=== PATIENT | female | born 1945 | race Caucasian/White ===

== ENCOUNTER → 2017-09-11 | Outpatient (CLI) | payer MEDICARE ==
[~2017-09-11] MED LIST: ADJUSTABLE COMM1 MIS; ATEN-102 PO; ATOR10TA PO; ATOR10TA15 PO; B12-1CHW CHEW; COBA1000 PO; CYAN100025 SL; D-20TAB3 PO; DAILTAB38 PO; FEXO180T PO; HYDR-3580 PO; LETR2.5T PO; LEVO.1 PO; LOSA100T3 PO; METO50TA PO; MOTR200T PO; VITA-13; WALKER WHEELS/F1 MIS; ZANT150T2 PO; [UNRECOGNIZED DRUG - CODE] PO
[2017-09-11 10:04] LABS: BACTERIA, URINE OCC /hpf; BLOOD, URINE NEG (NEG); COMMENT (UR) CULT NOT INDICATED; CULTURE IF INDICATED CULT NOT INDICATED; GLUCOSE,URINE NEG (NEG); KETONE, URINE NEG (NEG); NITRITE,URINE NEG (NEG); SQUAMOUS EPITHELIAL CELL URINE 1 /hpf (0-5); URINE COLOR LIGHT-YELLOW (YELLW/STRAW)
[2017-09-11 10:09] LABS: AUTOMATED NEUTROPHIL # 3.5 TH/MM3 (1.8-7.7); BASOPHIL # 0.1 TH/MM3 (0-0.2); BASOPHIL % 0.3 % (0.0-2.0); EOSINOPHIL % 0.2 % (0.0-4.0); HEMATOCRIT 38.9 % (35.0-46.0); LYMPH % 86.9 % (9.0-44.0); LYMPHOCYTE # 26.9 TH/MM3 (1.0-4.8); MEAN CELL VOLUME 97.7 FL (80.0-100.0); MEAN CORPUSCULAR HEMOGLOBIN 33.5 PG (27.0-34.0); MEAN CORPUSCULAR HGB CONC 34.3 % (32.0-36.0); MONO % 1.4 % (0.0-8.0); NEUT % 11.2 % (16.0-70.0); PLATELET COUNT 180 TH/MM3 (150-450); RED BLOOD COUNT 3.99 MIL/MM3 (4.00-5.30)
[2017-09-11 10:10] LABS: APTT (PATIENT) 24.7 SEC (24.3-30.1); PROTHROMBIN TIME - PATIENT 10.8 SEC (9.8-11.6)
[2017-09-11 10:21] LABS: HEMO FLAGS AUTO DIFF
[2017-09-11 11:25] LABS: NEUTROPHIL # MANUAL DIFF 4.7 TH/MM3 (1.8-7.7); POLYS (SEG NEUTROPHILS) 15 % (16-70); SMUDGE CELLS PRESENT PRESENT; WBC DIFF SAMPLE 100
[2017-09-11 11:26] LABS: PLATELET ESTIMATE SMEAR NORMAL (NORMAL); PLATELET MORPHOLOGY NORMAL (NORMAL); SCAN/DIFF FINAL DIFF MANUAL
--- NOTE | 2017-09-11 15:15 | EKG ---
Date Performed: 09/11/2017 Time Performed: 09:03:46 PTAGE: 72 years EKG: Sinus rhythm WITH OCCASIONAL VENTRICULAR PREMATURE COMPLEXES WITH OCCASIONAL SUPRAVENTRICULAR PREMATURE COMPLEXES MODERATE INTRAVENTRICULAR CONDUCTION DELAY BORDERLINE ECG NO PREVIOUS TRACING DOCTOR: Matias Chowdhury Interpretating Date/Time 09/11/2017 15:13:56
== END ==
LOC: CPRE 08:29
PROVIDERS: ATTEND Orthopaedic Surgery Orthopaedic Surgery of the Spine
DX: Z01.810 Encounter for preprocedural cardiovascular examination (principal); Z01.812 Encounter for preprocedural laboratory examination; M96.1 Postlaminectomy syndrome, not elsewhere classified; M53.2X6 Spinal instabilities, lumbar region; R94.31 Abnormal electrocardiogram [ECG] [EKG]
CPT/HCPCS: 36415; 81001; 85007; 85027; 85610; 85730; 93005

== ENCOUNTER 2017-09-24 08:41 | Inpatient (IN) | payer MEDICARE ==
[~2017-09-24] VITALS: Ht 165.1 cm; Wt 88.9 kg
[~2017-09-24 08:41] MED LIST changes: -ADJUSTABLE COMM1 MIS; -ATEN-102 PO; -ATOR10TA PO; -B12-1CHW CHEW; -COBA1000 PO; -CYAN100025 SL; -HYDR-3580 PO; -MOTR200T PO; -VITA-13; -WALKER WHEELS/F1 MIS
[2017-09-24] MEDS ORDERED: VANCOMYCIN HCL 1000 MG VIAL ONE (10:34)
[2017-09-24] MEDS ORDERED: SODIUM CHLOR 0.9% 250 ML INJ 250 ML ONE (10:34)
[2017-09-24] MEDS ORDERED: ceFAZolin 2 GM PREMIX 50 ML IV SCH (10:45)
[2017-09-24] MEDS ORDERED: POVIDONE IODINE 7.5% SCRUB 118 ML BOTTLE TOPICAL SCH (10:45)
[2017-09-24] MEDS ORDERED: CHLORHEXIDINE GLUCONATE 2 % 1 PACK (2 CLOTHS) TOPICAL PRN (10:45)
[2017-09-24] MEDS ORDERED: LACTATED RINGER'S 1000 ML IV PRN (10:45)
[2017-09-24] MEDS ORDERED: SODIUM CHLORID 0.9% 500 ML IV PRN (10:45)
[2017-09-24] MEDS ORDERED: INSULIN HUMAN REGULAR 1,000 UNITS/10 ML VIAL SQ PRN (10:45)
[2017-09-24] MEDS ORDERED: POVIDONE IODINE 5% (ANTISEPSIS KIT) 4 APPLICATIONS EACH NARE PRN (10:45)
[2017-09-24] MEDS ORDERED: METOPROLOL TARTRATE 25 MG TAB PO PRN (10:45)
[2017-09-24] MEDS ORDERED: VANCOMYCIN 1000 MG/NS 250 ML (for <70 kg) IV SCH ×2 (10:45)
[2017-09-24] MEDS ORDERED: GLYCOPYRROLATE 1 MG/5 ML SYRINGE IV PUSH ONE (12:00)
[2017-09-24] MEDS ORDERED: NEOSTIGMINE 3 MG/3 ML SYR IV ONE (12:00)
[2017-09-24] MEDS ORDERED: ONDANSETRON HCL 4 MG/2 ML VIAL IV PUSH ONE (12:00)
[2017-09-24] MEDS ORDERED: PROPOFOL 200 MG/20 ML AMP IV ONE (12:00)
[2017-09-24] MEDS ORDERED: DEXAMETHASONE SOD PHOS 4 MG/ML VIAL IV ONE (12:00)
[2017-09-24] MEDS ORDERED: PHENYLEPH/NS 1000 MCG/10 ML SYR IV ONE (12:00)
[2017-09-24] MEDS ORDERED: ePHEDrine/NS 25 MG/5 ML SYR IV ONE (12:00)
[2017-09-24] MEDS ORDERED: ceFAZolin INJ 1,000 MG VIAL IV ONE (12:00)
[2017-09-24] MEDS ORDERED: LIDOCAINE HCL 1% PF 5 ML AMPULE OTHER ONE (12:00)
[2017-09-24] MEDS ORDERED: MIDAZOLAM HCL 2 MG/2 ML VIAL IV ONE (12:00)
[2017-09-24] MEDS ORDERED: ROCURONIUM INJ 50 MG/5 ML SYRINGE IV PUSH ONE (12:00)
[2017-09-24] MEDS ORDERED: FAMOTIDINE 20 MG/2 ML VIAL ONE (13:09)
[2017-09-24] MEDS ORDERED: BETAMETHASONE SOD PHOS/ACETATE SUSP 30 MG/5 ML VIAL ONE (13:27)
[2017-09-24] MEDS ORDERED: GENTAMICIN SULFATE 80 MG/2 ML VIAL ONE (13:27)
[2017-09-24] MEDS ORDERED: GELATIN 12 MM/7 MM FOAM ONE (13:53)
[2017-09-24] MEDS ORDERED: THROMBIN (TOPICAL) 5,000 UNIT VIAL ONE (13:53)
[2017-09-24] MEDS ORDERED: HYDROmorphone HCL PF 2 MG/ML VIAL ONE (15:18)
[2017-09-24] MEDS ORDERED: NON-FORMULARY DRUG (Ranitidine (Zantac) 150 MG) PO PRN (16:45)
[2017-09-24] MEDS ORDERED: SOD PHOSPHATE/SOD BIPHOSPHATE (ADULT) ENEMA 133ML PR PRN (16:45)
[2017-09-24] MEDS ORDERED: BISACODYL 10 MG SUPP RECTAL PRN (16:45)
[2017-09-24] MEDS ORDERED: NALOXONE HCL 0.4 MG/ML AMP IV PUSH PRN (16:45)
[2017-09-24] MEDS ORDERED: SODIUM CHLORIDE 0.9% FLUSH 5 ML FLUSH IVF PRN (16:45)
[2017-09-24] MEDS ORDERED: ALUMINUM/MAGNESIUM/SIMETH 30 ML CUP PO PRN (16:45)
[2017-09-24] MEDS ORDERED: MORPHINE SULFATE 8 MG/ML INJ IV PUSH PRN (16:45)
[2017-09-24] MEDS ORDERED: Post-op Orders (for Pharmacy) MISC XX ONE (16:45)
[2017-09-24] MEDS ORDERED: ACETAMINOPHEN/HYDROcodone 325 MG/7.5 MG TAB PO PRN (16:45)
--- NOTE | 2017-09-24 16:45 | PD.OP ---
cc: Willard Bailey MD Operative Report Date of Surgery: Sep 24, 2017 Preoperative Diagnosis: Lumbar spinal stenosis, L4 5. Left lumbosacral radiculopathy. 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 Posterior spinal fusion, L4 5, lateral transverse process technique. Posterior spinal segmental instrumentation, L4 5. Posterior lateral interbody fusion L4 5 Placement of interbody cage, L4 5 from the left. Major bone grafting of the lumbar spine Anesthesia: Gen. Surgeon: Willard Bailey Pediatric Physiatrist(s): JUWAN Arriola Operation and Findings: EBL: 100 ml NOTE: Aurora Arriola PA-C was present for the entire surgical procedure as my speech pathologist assistant. In my medical opinion her skill and care was necessary for proper management of this patient INDICATIONS: This patient is a 72-year-old female with left-sided foraminal stenosis L4 5 associated with a disc into the foramen significant inflammatory changes at the L4 5 interspace to the left associated with a high-grade foraminal stenosis and evidence of inflammatory changes. She's had extensive conservative care and injections into that region that alleviates her pain for a period of time. She has a significant lateral listhesis at that level contributing to the foraminal stenosis. She now presents for surgical treatment. INSTRUMENTATION: Spine wave Stax cage and screws PROCEDURE: The patient brought to the operating room and anesthetized the supine position. The patient positioned prone on the Byron frame on the Yeyo table. All pressure points are protected. The back was scrubbed with alcohol followed by Hibiclens followed by ChloraPrep and draped sterilely and antibiotics were given within a routine time window. A timeout was done. Lateral radiographic images used to identify the proper level for the procedure. Compared care for the preoperative studies. Skin markings were made anticipating surgical treatment. A left paramedian incision was made. The lamina and facet joint was exposed. We used a dilating retractor which was positioned over this region. The microscope was rolled into the field for visualization. A high-speed bur was used to take the lamina down and doing a subtotal facet resection. The exiting and crossing nerve roots were completely decompressed. A total discectomy was accomplished. The disc space was prepared. All cartilaginous material from the disc space was removed. A combination of demineralized bone matrix and Nucel stem cells were mixed together on the back table.. These were injected into the disc space. The cage was then placed according to health promotion manager's recommendation and deployed. Position was satisfactory. Additional bone graft was placed into the disc space. The outer edge of the facet joint was identified and prepared. Under fluoroscopic images, a bur was used to gain entrance into the pedicle followed by placement of a blunt probe, an awl and placement of proper length screws. Each screw was charged with electric current there are no abnormal potentials registered in either lower extremity. A proper length pascual was fitted and attached and tightened according to health promotion manager's recommendation. The wound was irrigated copiously. Bone grafting was placed along the lateral gutter in the region of the transverse process across this level. This was closed in layers with #1 Vicryl, 2-0 Vicryl and running intradermal 3-0 Vicryl followed by Steri-Strips and benzoin. On the contralateral side a separate exposure was made. The outer edge of the facet joints were identified. A bur was used to gain entrance into the pedicle followed by placement of a probe and proper length screws. Each screw was charged with electric current and no abnormal potentials registered in either lower extremity. The wound was irrigated copiously. Bone graft placed along the transverse process across this level. It was closed in layers using #1 Vicryl, 2-0 Vicryl and running intradermal 3-0 Vicryl followed by Steri-Strips and benzoin. Intraoperative radiographs were obtained. No complication was appreciated. The patient had a sterile dressing applied. The patient was awakened and taken to recovery room in satisfactory condition. FINDINGS: There was evidence of a high-grade left-sided foraminal stenosis affecting the exiting left L4 nerve root. The decompression was felt to be very satisfactory. There was no evidence of residual nerve root compromise. Cage and screw placement appeared be very satisfactory. There was no complication that was appreciated. Willard Bailey MD Sep 24, 2017 16:45
[2017-09-24] MEDS ORDERED: HYDR-3580 PO (16:48)
[2017-09-24] MEDS ORDERED: DO NOT ADM ANY ANTICOAGULANT DRUGS PRN (17:02)
[2017-09-24] MEDS ORDERED: FAMOTIDINE 20 MG TAB PO PRN (17:15)
--- NOTE | 2017-09-24 17:18 | RADRPT ---
EXAM DATE/TIME: 09/24/2017 16:20 [place] COMPARISON: No previous studies available for comparison. INDICATIONS : L4-L5 lumbar fusion. MEDICAL HISTORY : None. SURGICAL HISTORY : None. ENCOUNTER: Initial ACUITY: 1 day PAIN SCORE: 0/10 LOCATION: Bilateral l-spine FINDINGS: AP and lateral spot fluoroscopic images of the lumbar spine demonstrate posterior spinal fixation wit h bilateral pedicular screws and stabilization hardware at L4-L5. CONCLUSION: Images document posterior spinal fusion at L4-L5. Guevara Stinson MD on September 24, 2017 at 17:16 Board Certified Radiologist. This report was verified electronically.
[2017-09-24] MEDS: MORPHINE SULFATE 30 MG/30 ML PCA IV SCH (17:39)
[2017-09-24] MEDS: LACTATED RINGER'S 1000 ML INJ 1,000 ML IV SCH (17:39)
[2017-09-24 20:46] VITALS: O2SAT 95
[2017-09-24 20:50] VITALS: BP 135/68; PULSE 72; RESP 18; TEMP 97; O2SAT 99
[2017-09-24] MEDS ORDERED: WALKER WHEELS/F1 MIS (21:00)
[2017-09-24] MEDS ORDERED: ZOLPIDEM TARTRATE 5 MG TAB PO PRN (21:00)
[2017-09-24] MEDS ORDERED: ADJUSTABLE COMM1 MIS (21:01)
--- NOTE | 2017-09-24 21:01 | HHI.DCPOC ---
Discharge Care Plan Diagnosis: (1) Back pain (2) Lumbar spinal stenosis (3) Lumbar spine instability Your Health Problems Are: Difficulty with ADL Incision/Drains Inflammation Goals to Promote Your Health * To prevent worsening of your condition and complications * To maintain your health at the optimal level Directions to Meet Your Goals Take your medications as prescribed Follow your dietary instruction Follow activity as directed Keep your appointments as scheduled Take your immunizations and boosters as scheduled If your symptoms worsen call your PCP, if no PCP go to Urgent Care Center or Emergency Room Smoking is Dangerous to Your Health. Avoid second hand smoke Call the 24-hour hour crisis hotline for domestic abuse at Dilma Renner Sep 24, 2017 21:01
--- NOTE | 2017-09-24 21:03 | HHI.FF ---
Face to Face Verification Diagnosis: (1) Back pain (2) Lumbar spine instability (3) Lumbar spinal stenosis Physical Therapy Gait training, Safety evaluation, Transfer training, bed to chair S/P Spinal Fusion: Gait training with walker, Weight bearing as tolerated, No twisting of torso, No bending Additional Instructions PT 4 days/wk for 1 week. WBAT bilateral LE. Out of bed with lumbar brace for 10 weeks. Limit lifting, bending or twisting. Nursing RN Days per Week: 4 x Week(s): 1 Nursing: Dressing changes Dressing Changes: Daily dressing change, 4x4s, Coverderm/Primapore Additional Instructions Vitals assessment. Dressing assessment - dry dressing changes daily w etoh. I have seen patient Philomena Corona on 09/24/17. My clinical findings support the need for the requested home health care services because: Limited ability to care for self High risk of falls I certify that my clinical findings support that this patient is homebound because: Post-op weakness Unsteady gait/balance Dilma Renner Sep 24, 2017 21:03
--- NOTE | 2017-09-24 21:11 | HHI.DS ---
Discharge Summary Admission Date Sep 24, 2017 at 09:40 Discharge Date: Sep 26, 2017 Admitting Diagnosis see below Diagnosis: (1) Back pain Diagnosis: Principal ICD Codes: M54.9 - Back pain Status: Acute (2) Lumbar spinal stenosis Diagnosis: Principal ICD Codes: M48.061 - Spinal stenosis, lumbar region without neurogenic claudication (3) Lumbar spine instability Diagnosis: Principal ICD Codes: M53.2X6 - Spinal instabilities, lumbar region Procedures Left laminectomy L45, subtotal facet resection, posterior lumbar fusion, posterior spinal segmental instrumentation with interbody cage L45, bone graft. Brief History This is a 72 year old female patient back and left leg pain for 3-4 years. She had previous imaging in 2013 that lead to treatment with ESIs. She was able to get some relief but her pain continued. She sought out treatment with Dr. Navin Fair April of 2017. Physical therapy was ordered in addition to an updated MRI. This showed substantial foraminal stenosis L45 to the left. Therapy was discontinued and she was referred to pain management for a left L4 nerve root injection at L45. This was repeated 2 times. She was able to improve pain by 80-90 percent but only temporarily. After her pain returned and function declined she was referred to Dr. Willard Fair for surgical treatment. After review of studies it was recommended she undergo Left laminectomy L45 with subtotal facet resection to be able to decompress the L4 nerve root followed by posterior lumbar fusion with segmental instrumentation and interbody cage L45. The patient agreed and now presents for the above. Hospital Course Surgical treatment was performed on the day of admission without complication. She recovered well in PACU and was transferred to the orthopaedic floor. Pain was controlled with IV and oral medications. She was compliant with physical therapy and all restrictions including use of her lumbar brace and lumbar fusion protocols. After 2 days she was found to be stable and discharged home with home health care. 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 She was given a prescription of [place] for pain. Pt Condition on Discharge: Stable Discharge Disposition: Disch w/ Home Health Serv Discharge Instructions Diet Instructions: As Tolerated, No Restrictions, High Fiber Diet Activities You Can Perform: Weight Bearing as Radha, See Additionl Instruction Activities to Avoid: Lifting/Bending, Strenuous Activity Additional Activity Instruc.: Out of bed with lumbar brace for 10-12 weeks. New Medications: Adjustable Commode 3-in-1 (Adjustable Commode 3-in-1) 1 Mis Mis EA .ROUTE DIRECTED, #1 Walker with Front Wheels (Walker with Front Wheels) 1 Mis Mis EA .ROUTE DIRECTED, #1 0 Refills Hydrocodone/Acetaminophen (Hydrocodone-Acetamin 7.5-325) 7.5 Mg-325 Mg Tablet 1 TAB PO Q4H PRN for Pain, #50 TAB Continued Medications: Atorvastatin (Atorvastatin) 10 Mg Tab 10 MG PO HS for Cholesterol Management, #30 TAB 0 Refills Cholecalciferol (D-2000 Maximum Strength) 2,000 Unit Tab 4000 UNITS PO DAILY for Nutritional Supplement, #30 TAB 0 Refills Cyanocobalamin (Vitamin B-12) (B-12) 1,000 Mcg Tablet 2 TAB PO DAILY Fexofenadine (Fexofenadine) 180 Mg Tab 180 MG PO DAILY for Allergy Management, #30 TAB 0 Refills Letrozole (Letrozole) 2.5 Mg Tab 2.5 TAB PO DAILY Levothyroxine (Synthroid) 100 Mcg Tab 100 MCG PO DAILY for Thyroid, #30 TAB 0 Refills Losartan-Hydrochlorothiazide (Losartan-Hydrochlorothiazide) 100-12.5 Mg Tab 1 TAB PO DAILY for Blood Pressure Management, #30 TAB 0 Refills Metoprolol Tartrate (Metoprolol Tartrate) 50 Mg Tab 50 MG PO DAILY, #30 TAB 0 Refills Multiple Vitamin (Daily Multiple Vitamin) 1 Tab Tab TAB PO DAILY Ranitidine (Zantac) 150 Mg Tab 150 MG PO DAILY PRN for HEARTBURN, #30 TAB 0 Refills Dilma Renner Sep 24, 2017 21:11
[2017-09-24] MEDS: ATORVASTATIN 10 MG TAB PO SCH (21:25)
[2017-09-24] MEDS: SODIUM CHLORIDE 0.9% FLUSH 5 ML FLUSH IVF SCH (21:25)
[2017-09-24] MEDS: ONDANSETRON HCL 4 MG/2 ML VIAL IV PUSH PRN (21:46)
[2017-09-24] MEDS: PCA - TOTAL MG MORPHINE DELIVERED PER SHIFT SCH (22:00)
[2017-09-25] VITALS (7 sets, daily range): BP systolic 113–196; BP diastolic 60–92; PULSE 63–88; RESP 16–18; TEMP 95.8–97.1; O2SAT 93–99
[2017-09-25] MEDS: ONDANSETRON HCL 4 MG/2 ML VIAL IV PUSH PRN (04:16)
[2017-09-25] MEDS: LEVOTHYROXINE SODIUM 100 MCG TAB PO SCH (04:17)
[2017-09-25] MEDS: LACTATED RINGER'S 1000 ML INJ 1,000 ML IV SCH ×2 (04:21→17:36)
[2017-09-25] MEDS: PCA - TOTAL MG MORPHINE DELIVERED PER SHIFT SCH ×3 (06:00→22:00)
[2017-09-25] MEDS: MORPHINE SULFATE 30 MG/30 ML PCA IV SCH (07:21)
[2017-09-25] MEDS: METOPROLOL TARTRATE 50 MG TAB PO SCH (08:42)
[2017-09-25] MEDS: HYDROCHLOROTHIAZIDE 12.5 MG CAP PO SCH (08:42)
[2017-09-25] MEDS: LORATADINE 10 MG TAB PO SCH (08:42)
[2017-09-25] MEDS: LOSARTAN 50 MG TAB PO SCH (08:42)
[2017-09-25] MEDS: ACETAMINOPHEN/HYDROcodone 325 MG/7.5 MG TAB PO PRN (08:43)
[2017-09-25] MEDS ORDERED: LETROZOLE PO SCH (09:00)
[2017-09-25] MEDS ORDERED: NON-FORMULARY DRUG (Fexofenadine 180 MG) PO SCH (09:00)
[2017-09-25] MEDS: SODIUM CHLORIDE 0.9% FLUSH 5 ML FLUSH IVF SCH ×2 (09:00→22:10)
[2017-09-25] MEDS ORDERED: NON-FORMULARY DRUG (Losartan-Hydrochlorothiazide 1 TAB) PO SCH (09:00)
[2017-09-25] MEDS ORDERED: PT:LETROZOLE 2.5 MG PO SCH (09:00)
[2017-09-25 09:03] LABS: REVIEW FLAG FINAL
--- NOTE | 2017-09-25 13:43 | PD.ORT.PN ---
Subjective Subjective Remarks She states she has moderate back pain. She cannot tell if her leg is improved as she has had limited activity since surgery. She states it is no worse. She does note she has left shoulder aching since surgery. It does not radiate. She has abdominal pain but notes a history of hiatal hernia and she states this feels 'likeit always does'. No new chest pain or shortness of breath. Objective Vitals Vital Signs Date Time Temp Pulse Resp B/P (MAP) Pulse Ox O2 Delivery O2 Flow Rate FiO2 09/25/17 12:08 93 21 09/25/17 12:00 96.7 63 18 196/86 (122) 98 09/25/17 08:00 95.8 74 17 162/90 (114) 99 09/25/17 04:44 96.8 65 16 136/63 (87) 97 09/25/17 00:45 96.5 70 17 152/67 (95) 99 09/24/17 20:50 97.0 72 18 135/68 (90) 99 09/24/17 20:46 95 Nasal Cannula 3.00 09/24/17 18:00 72 14 157/58 (91) 95 Nasal Cannula 3 09/24/17 17:45 65 17 122/56 (78) 95 Nasal Cannula 3 09/24/17 17:39 15 09/24/17 17:30 66 23 124/58 (80) 93 Nasal Cannula 3 09/24/17 17:15 79 18 135/64 (87) 99 Nasal Cannula 3 09/24/17 17:04 98.0 90 18 137/66 (89) 99 Nasal Cannula 3 I/O 09/24/17 09/24/17 09/24/17 09/25/17 09/25/17 09/25/17 07:00 15:00 23:00 07:00 15:00 23:00 Intake Total 1760 ml 1201 ml Output Total 300 ml 200 ml Balance 1460 ml 1001 ml Intake Oral 360 ml 480 ml IV Total 721 ml Other 1400 ml Output Urine Total 200 ml 200 ml Estimated Blood Loss 100 ml Bladder Scan Volume Amount 352 ml # Voids 0 1 # Bowel Movements 0 0 Result Diagram: 09/25/17820 Procedures Left laminectomy L45, subtotal facet resection, posterior lumbar fusion, posterior spinal segmental instrumentation with interbody cage L45, bone graft. Objective Remarks Sitting up in bed NAD With 2 family members L/S Dressings intact, mild SS drainage, no erythema +motor at/ehl bilaterally, +sens, +nvi Neg homans No pain with abdominal palpation, soft but mild distention Assessment & Plan Ortho Post Op Day #: 1 Problem List: (1) Back pain ICD Codes: M54.9 - Back pain Status: Acute (2) Lumbar spinal stenosis ICD Codes: M48.061 - Spinal stenosis, lumbar region without neurogenic claudication Qualifiers: Qualified Codes: M48.062 - Spinal stenosis, lumbar region with neurogenic claudication (3) Lumbar spine instability ICD Codes: M53.2X6 - Spinal instabilities, lumbar region Assessment and Plan pod#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 Vasotec 5mg prn elevated BP over 170. Dry dressing changes beginning pod#2. PT - WBAT w lumbar brace. We discussed her abdominal symptoms. Will hold off on treatment as she has strong history of hiatal hernia. If distention increases or pain increases consider abdominal studies to rule out postop ileus. Low suspicion at this time. D/C planning, Home w [facility] tomorrow if stable. DME written. Dilma Renner Sep 25, 2017 13:43
[2017-09-25] MEDS ORDERED: ENALAPRIL MALEATE 5 MG TAB PO PRN (13:45)
[2017-09-25] MEDS ORDERED: PROMETHAZINE HCL 25 MG TAB PO PRN (15:15)
[2017-09-25] MEDS: ATORVASTATIN 10 MG TAB PO SCH (22:10)
[2017-09-25] MEDS: DOCUSATE SODIUM 100 MG CAP PO SCH (22:10)
[2017-09-26 04:00] VITALS: BP 120/63; PULSE 115; RESP 20; TEMP 98.6; O2SAT 95
[2017-09-26] MEDS: PCA - TOTAL MG MORPHINE DELIVERED PER SHIFT SCH (06:03)
[2017-09-26] MEDS: LEVOTHYROXINE SODIUM 100 MCG TAB PO SCH (06:03)
[2017-09-26] MEDS: LACTATED RINGER'S 1000 ML INJ 1,000 ML IV SCH (06:30)
[2017-09-26 08:00] VITALS: BP 124/67; PULSE 105; RESP 18; TEMP 98; O2SAT 97
--- NOTE | 2017-09-26 08:31 | PD.ORT.PN ---
Subjective Subjective Remarks She states she is doing better today though she did not sleep well last night. Her abdominal pain is better. The phenergan resolved almost all of her nausea. Her legs are doing 'very well'. She is 'very pleased'. She continues to have some left shoulder aching. It does not radiate. She is able to use her walker. No new chest pain or shortness of breath. Ready for discharge home. Objective Vitals Vital Signs Date Time Temp Pulse Resp B/P (MAP) Pulse Ox O2 Delivery O2 Flow Rate FiO2 09/26/17 06:03 17 09/26/17 04:00 98.6 115 20 120/63 (82) 95 09/26/17 01:32 Room Air 09/25/17 22:00 19 09/25/17 20:15 21 09/25/17 20:00 97.1 88 18 113/60 (77) 98 09/25/17 16:00 96.3 64 17 140/92 (108) 97 09/25/17 14:00 17 09/25/17 12:08 93 21 09/25/17 12:00 96.7 63 18 196/86 (122) 98 I/O 09/25/17 09/25/17 09/25/17 09/26/17 09/26/17 09/26/17 07:00 15:00 23:00 07:00 15:00 23:00 Intake Total 1201 ml 1650 ml 480 ml Output Total 200 ml Balance 1001 ml 1650 ml 480 ml Intake Oral 480 ml 1650 ml 480 ml IV Total 721 ml Output Urine Total 200 ml Bladder Scan Volume Amount 352 ml # Voids 1 4 2 1 # Bowel Movements 0 0 Result Diagram: 09/25/17 0821 Procedures Left laminectomy L45, subtotal facet resection, posterior lumbar fusion, posterior spinal segmental instrumentation with interbody cage L45, bone graft. Objective Remarks Sitting up in chair NAD L/S Dressings intact, no new drainage, no erythema +motor at/ehl bilaterally, +sens, +nvi Neg homans No pain with abdominal palpation, no distention today, soft Assessment & Plan Ortho Post Op Day #: 2 Problem List: (1) Back pain ICD Codes: M54.9 - Back pain Status: Acute (2) Lumbar spinal stenosis ICD Codes: M48.061 - Spinal stenosis, lumbar region without neurogenic claudication Qualifiers: Qualified Codes: M48.062 - Spinal stenosis, lumbar region with neurogenic claudication (3) Lumbar spine instability ICD Codes: M53.2X6 - Spinal instabilities, lumbar region Assessment and Plan pod#2 s/p Lami Fusion L45 Ortho stable. Ok to d/c home today. Abdomena nd bowels improved. No need for workup at this time. She takes Zantac at home. PO pain meds as needed. Dry dressing changes beginning pod#2. PT - WBAT w lumbar brace. Conservative care for her left shoulder. If pain continues may need eval for tendonitis. F/U in 2 weeks as scheduled. DME written. Dilma Renner Sep 26, 2017 08:31
[2017-09-26] MEDS: HYDROCHLOROTHIAZIDE 12.5 MG CAP PO SCH (08:47)
[2017-09-26] MEDS: LORATADINE 10 MG TAB PO SCH (08:47)
[2017-09-26] MEDS: LOSARTAN 50 MG TAB PO SCH (08:47)
[2017-09-26] MEDS: DOCUSATE SODIUM 100 MG CAP PO SCH (08:47)
[2017-09-26] MEDS: METOPROLOL TARTRATE 50 MG TAB PO SCH (08:47)
[2017-09-26] MEDS: ACETAMINOPHEN/HYDROcodone 325 MG/7.5 MG TAB PO PRN ×2 (08:48→12:49)
[2017-09-26] MEDS: SODIUM CHLORIDE 0.9% FLUSH 5 ML FLUSH IVF SCH (08:51)
== END 2017-09-26 13:22 | disposition home health service (06) | DRG 460 ==
LOC: HSDI 09:40 → N06B 18:24
PROVIDERS: ADMIT Orthopaedic Surgery Orthopaedic Surgery of the Spine; ATTEND Orthopaedic Surgery Orthopaedic Surgery of the Spine
PROC: 0ST20ZZ Resection of Lumbar Vertebral Disc, Open Approach (ICD-10-PCS; 2017-09-24)
PROC: 0SG00AJ Fusion of Lumbar Vertebral Joint with Interbody Fusion Device, Posterior Approach, Anterior Column, Open Approach (ICD-10-PCS; principal; 2017-09-24 13:47)
DX: M48.061 Spinal stenosis, lumbar region without neurogenic claudication (principal); C91.10 Chronic lymphocytic leukemia of B-cell type not having achieved remission; M51.16 Intervertebral disc disorders with radiculopathy, lumbar region; M53.2X6 Spinal instabilities, lumbar region; G89.4 Chronic pain syndrome; M16.10 Unilateral primary osteoarthritis, unspecified hip; M81.0 Age-related osteoporosis without current pathological fracture; K21.9 Gastro-esophageal reflux disease without esophagitis; K44.9 Diaphragmatic hernia without obstruction or gangrene; I10 Essential (primary) hypertension; E89.0 Postprocedural hypothyroidism; F17.200 Nicotine dependence, unspecified, uncomplicated; F32.9 Major depressive disorder, single episode, unspecified; Z85.3 Personal history of malignant neoplasm of breast
CPT/HCPCS: 72100; 76000; 85014; 85018; 86850; 86900; 86901; C1713; J0690; J0702; J1100; J1170; J1580; J2250; J2270; J2370; J2405; J2710; J3010; J3370; J7050; J7120; Q0169